=== PATIENT | male | born 1960 | race American Indian/Alaskan Native ===

== ENCOUNTER 2018-11-25 06:43 | Emergency (ER) | payer MEDICAID ==
[2018-11-25 07:28] VITALS: RESP 18; TEMP 98.1; O2SAT 100
[2018-11-25 08:13] LABS: BASO % 0.7 % (0.0-2.0); EOS # 0.1 K/uL (0.0-0.7); EOS % 2.1 % (0.0-4.0); HEMOGLOBIN 15.1 g/dL (12.0-18.0); LYMPH # 1.7 K/uL (1.0-4.3); LYMPH % 37.7 % (20.0-40.0); MEAN CELL VOLUME 85.5 fL (80.0-94.0); MEAN CORPUSCULAR HEMOGLOBIN 28.7 pg (27.0-31.0); MEAN CORPUSCULAR HGB CONC 33.5 g/dL (33.0-37.0); MEAN PLATELET VOLUME 8.5 fL (7.2-11.7); MONO # 0.5 K/uL (0.0-0.8); MONO % 10.2 % (0.0-10.0); NEUT # 2.3 K/uL (1.8-7.0); NEUT % 49.3 % (50.0-75.0); NRBC % 0.1 % (0.0-2.0); RBC 5.27 Mil/uL (4.40-5.90); RED CELL DISTRIBUTION WIDTH 18.5 % (11.5-14.5); WHITE BLOOD COUNT 4.6 K/uL (4.8-10.8)
--- NOTE | 2018-11-25 08:17 | C.PDOC ---
History Of Present Illness 58 year old male presents to the ED complaining of bilateral leg swelling and shortness of breath. Reports he has a history of heart surgery in 2018. States he has not taken his medications in 3 days because he needs a refill. The pa bonnie reports that he was seen at [facility] [place] for similat symptoms and was evaluated and discharged home. Pt reports that he was given Rx but didnt get it. Denies any fever, chills, nausea, chest pain, vomiting, diarrhea, or any other symptoms. Time Seen by Provider: 11/25/18 07:33 Chief Complaint (Nursing): Lower Extremity Problem/Injury History Per: Patient History/Exam Limitations: no limitations Onset/Duration Of Symptoms: Days Current Symptoms Are (Timing): Better Pain Scale Rating Of: 1 Recent travel outside of the [place]: No Past Medical History Reviewed: Historical Data, Nursing Documentation, Vital Signs Vital Signs: Last Vital Signs Temp 98.1 F 11/25/18 07:22 Pulse 89 11/25/18 07:22 Resp 18 11/25/18 07:22 BP 157/83 H 11/25/18 07:22 Pulse Ox 100 11/25/18 07:22 Primary Care Provider: FAMILY PROVIDER,NO - Medical History PMH: CHF, HTN Surgical History: CABG Family History: States: No Known Family Hx - Social History Hx Alcohol Use: Yes Hx Substance Use: Yes (heroine) - Immunization History Hx Tetanus Toxoid Vaccination: No Hx Influenza Vaccination: No Hx Pneumococcal Vaccination: No Review Of Systems Except As Marked, All Systems Reviewed And Found Negative. Constitutional: Negative for: Fever, Chills Cardiovascular: Positive for: Edema (leg swelling). Negative for: Chest Pain Respiratory: Positive for: Shortness of Breath. Negative for: Cough Gastrointestinal: Negative for: Nausea, Vomiting, Diarrhea Neurological: Negative for: Weakness, Numbness Physical Exam - Physical Exam Appears: Well, Non-toxic, No Acute Distress, Other (unkempt ) Skin: Warm, Dry, No Rash Head: Atraumatic, Normacephalic Eye(s): bilateral: Normal Inspection, PERRL, EOMI Nose: Normal Oral Mucosa: Moist Throat: No Erythema, No Exudate Neck: Normal ROM, Supple Chest: Symmetrical Cardiovascular: Rhythm Regular Respiratory: Normal Breath Sounds, No Rales, No Rhonchi, No Wheezing Gastrointestinal/Abdominal: Soft, No Tenderness Back: Normal Inspection, No CVA Tenderness, No Vertebral Tenderness Extremity: Normal ROM, Pedal Edema (2+ pitting pedal edema ) Pulses: Left Dorsalis Pedis: Normal, Right Dorsalis Pedis: Normal Neurological/Psych: Oriented x3, Normal Speech, Normal Motor, Normal Sensation Gait: Steady ED Course And Treatment - Laboratory Results Result Diagrams: 11/25/18 08:09 11/25/18 08:09 O2 Sat by Pulse Oximetry: 100 (RA) Pulse Ox Interpretation: Normal Medical Decision Making Medical Decision Making: Plan - EKG - CXR - Bloodwork - UA The patient has been sleeping and resting comfortably. Lungs remain CTA, edema is chronic and patient has no SOB now. PT was instructed that he needs to get his medications and follow up with the clinic within 1-2 days. Disposition - Disposition Referrals: [facility] [Outside] [facility] [employer] [facility] [Outside] Disposition: HOME/ ROUTINE Disposition Time: 10:46 Condition: STABLE Additional Instructions: CONTINUE TAKING YOUR MEDICATIONS PRESCRIBED. SEE THE MEDICAL CLINIC TOMORROW IN THE MORNING FOR PRESCRIPTION REFILL. RETURN TO THE ED IF THERE IS ANY WORSENING. Instructions: Dependent Edema (DC), Swelling Forms: [employer] ([place]) - Clinical Impression Clinical Impression: Leg edema - PA / [employer] / Resident Statement MD/DO has reviewed & agrees with the documentation as recorded. - Scribe Statement The provider has reviewed the documentation as recorded by the Scribe Kristen Quigley All medical record entries made by the Scribe were at my direction and personally dictated by me. I have reviewed the chart and agree that the record accurately reflects my personal performance of the history, physical exam, medical decision making, and the department course for this patient. I have also personally directed, reviewed, and agree with the discharge instructions and disposition.
[2018-11-25 08:19] LABS: SQUAMOUS EPITHIAL < 1 /hpf (0-5); URINE BILIRUBIN NEGATIVE (NEGATIVE); URINE BLOOD NEGATIVE (NEGATIVE); URINE CLARITY Clear (Clear); URINE COLOR Colorless (YELLOW); URINE GLUCOSE (UA) NORMAL (Normal); URINE LEUKOCYTE ESTERASE NEG Leu/uL (Negative); URINE PROTEIN NEGATIVE (NEGATIVE); URINE UROBILINOGEN NORMAL mg/dL (0.2-1.0)
[2018-11-25 08:23] LABS: INR 1.1; PARTIAL THROMBOPLASTIN TIME 38.9 SECONDS (21-34); PROTHROMBIN TIME 11.9 SECONDS (9.7-12.2)
[2018-11-25 08:32] LABS: ALB/GLOB RATIO 1.3 (1.0-2.1); ALBUMIN 4.5 g/dL (3.5-5.0); ALT/SGPT 25 U/L (21-72); AST/SGOT 38 U/L (17-59); BLOOD UREA NITROGEN 19 mg/dL (9-20); CALCIUM 9.4 mg/dl (8.6-10.4); GFR NON-AFRICAN AMERICAN > 60
[2018-11-25 08:43] LABS: B-TYPE NATRIURETIC PEPTIDE 294 pg/mL (0-900)
[2018-11-25 11:14] VITALS: BP 126/81; PULSE 82
--- NOTE | 2018-11-25 15:53 | RAD ---
Date of service: 11/25/2018 HISTORY: leg swelling, SOB COMPARISON: No prior study available for comparison TECHNIQUE: 1 view obtained. FINDINGS: LUNGS: The central pulmonary vasculature is slightly increased; rule out mild chronic compensated pulmonary venous congestion. Suspect minor left basilar atelectasis slight elevation right hemidiaphragm possibly due to eventration. PLEURA: No significant pleural effusion identified, no pneumothorax apparent. CARDIOVASCULAR: Postoperative changes with sternotomy wires and CABG clips. Heart size is upper limits of normal/borderline enlarged. Aortic atherosclerotic calcification present. OSSEOUS STRUCTURES: No significant abnormalities. VISUALIZED UPPER ABDOMEN: Normal. OTHER FINDINGS: None. IMPRESSION: The central pulmonary vasculature is slightly increased; rule out mild chronic compensated pulmonary venous congestion. Slight elevation right hemidiaphragm possibly due to eventration. Suspect minor left basilar atelectasis
--- NOTE | 2018-11-26 17:52 | CARD ---
APPROVED REPORT Date of service: 11/25/2018 EKG Measurement Heart [id number] <Conclusion> Sinus bradycardia Right bundle branch block Abnormal ECG
== END 2018-11-25 11:40 | disposition home or self-care (01) ==
LOC: C.ER 06:43
DX: R60.0 Localized edema (principal)